=== PATIENT | male | born 1980 | race Caucasian/White ===

== ENCOUNTER 2017-12-09 13:30 | Emergency (ER) | payer SELFPAY ==
[~2017-12-09] VITALS: Ht 180.3 cm; Wt 68.2 kg
[2017-12-09] MEDS ORDERED: NATURE'S BLEND500 M5 (13:39)
[2017-12-09 14:09] LABS: EOS # 0.2 (0.04-0.40); EOS % 1.5 % (0.0-4.0); HEMATOCRIT 44.7 % (42.0-52.0); HEMOGLOBIN 15.5 g/dL (13.5-18.0); LYMPH# 1.7 (1.50-4.00); MEAN CELL VOLUME 95 fl (78-100); MEAN CORPUSCULAR HEMOGLOBIN 33 pg (27-31); MEAN CORPUSCULAR HGB CONC 35 g/dL (33-37); MONO # 0.8 (0.20-0.80); PLATELET COUNT 123 K/mm3 (130-400); RED BLOOD COUNT 4.69 M/mm3 (4.20-5.60); RED CELL DISTRIBUTION WIDTH 14.9 % (11.5-14.5); WHITE BLOOD COUNT 13.5 K/mm3 (4.8-10.8)
[2017-12-09 14:46] LABS: MEAN PLATELET VOLUME 12.5 fl (7.4-10.4); NEU # 10.7 (1.40-6.50)
[2017-12-09 16:18] LABS: ALBUMIN 4.1 g/dL (3.5-5.0); POTASSIUM 3.6 mmol/L (3.6-5.0); TOTAL BILIRUBIN 0.6 mg/dL (0.2-1.3); TOTAL PROTEIN 7.3 g/dL (6.3-8.2)
[2017-12-09 16:52] LABS: CALCIUM 4.8 mg/dL (8.4-10.2)
== END 2017-12-09 15:09 | disposition home or self-care (01) ==
LOC: ED 13:30
PROVIDERS: Nurse Practitioner Primary Care
DX: D82.1 Di George's syndrome (principal); F17.200 Nicotine dependence, unspecified, uncomplicated
CPT/HCPCS: J1885

== ENCOUNTER → 2017-12-14 | Outpatient (CLI) | payer SELFPAY ==
[~2017-12-14] MED LIST: NATURE'S BLEND500 M5
[2017-12-14 17:37] LABS: CALCIUM 7.8 mg/dL (8.4-10.2); POTASSIUM 4.2 mmol/L (3.6-5.0)
[2017-12-15 17:35] LABS: CALCIUM, IONIZED, SERUM 1.08 mmol/L (1.19-1.41)
== END ==
LOC: LAB 15:38
PROVIDERS: Physician Assistant
DX: D82.1 Di George's syndrome (principal); R20.0 Anesthesia of skin; E83.51 Hypocalcemia; M79.641 Pain in right hand

== ENCOUNTER → 2018-06-17 | Outpatient (CLI) | payer SELFPAY ==
[2018-06-17 14:01] LABS: ALBUMIN 4.4 g/dL (3.5-5.0); CALCIUM 6.4 mg/dL (8.4-10.2); POTASSIUM 3.8 mmol/L (3.5-5.1); TOTAL BILIRUBIN 0.8 mg/dL (0.2-1.2); TOTAL PROTEIN 7.1 g/dL (6.4-8.3)
[2018-06-17 14:16] LABS: BASO # 0.1 (0.02-0.10); EOS # 0.3 (0.04-0.40); EOS % 3.2 % (0.0-4.0); HEMATOCRIT 43.9 % (42.0-52.0); LYMPH# 2.6 (1.50-4.00); MEAN CELL VOLUME 93 fl (78-100); MEAN CORPUSCULAR HEMOGLOBIN 32 pg (27-31); MEAN CORPUSCULAR HGB CONC 34 g/dL (33-37); MONO # 0.7 (0.20-0.80); NEU # 5.2 (1.40-6.50); PLATELET COUNT 115 K/mm3 (130-400); RED BLOOD COUNT 4.72 M/mm3 (4.20-5.60); RED CELL DISTRIBUTION WIDTH 15.3 % (11.5-14.5); WHITE BLOOD COUNT 8.9 K/mm3 (4.8-10.8)
[2018-06-17 14:23] LABS: MEAN PLATELET VOLUME 12.7 fl (7.4-10.4)
== END ==
LOC: LAB 13:30
PROVIDERS: Nurse Practitioner
DX: L81.9 Disorder of pigmentation, unspecified (principal)

== ENCOUNTER → 2019-05-16 | Outpatient (CLI) | payer SELFPAY | LOC: AMSURD 09:13 → LAB 09:13 | DX: F17.210 Nicotine dependence, cigarettes, uncomplicated (principal); R05 Cough; R11.10 Vomiting, unspecified ==

== ENCOUNTER → 2021-03-01 | Outpatient (CLI) | payer SELFPAY | LOC: LAB 08:29 | DX: Z20.822 Contact with and (suspected) exposure to COVID-19 (principal) ==